=== PATIENT | female | born 1990 | race Caucasian/White ===

== ENCOUNTER 2021-05-28 17:51 | Emergency (ER) | payer MEDICAID ==
[~2021-05-28] VITALS: Ht 165.1 cm; Wt 100.0 kg
--- NOTE | 2021-05-28 18:15 | NUR ---
late entry::PT BROUGHT TO ROOM BY EMS
--- NOTE | 2021-05-28 18:23 | NUR ---
L&D AT BEDSIDE FOR FHT
--- NOTE | 2021-05-28 19:00 | NUR ---
FIRST ENCOUNTER WITH PATIENT. PATIENT SITTING IN BEDSIDE COMMODE. LAB AT BEDSIDE. PATIENT SPEAKING ABOUT HOW HOSPITALS DONT HELP PEOPLE AND SHE JUST WANTS TO GO HOME. WILL CONTINUE TO MONITOR.
--- NOTE | 2021-05-28 19:20 | NUR ---
PATIENTS MOM CALLED ED. ATTEMPTED TO SPEAK WITH HER BUT UNABLE TO HEAR HER ON THE OTHER LINE. ADVISED HER TO CALL BACK DUE TO THE INABILITY TO HEAR HER ON THE PHONE.
--- NOTE | 2021-05-28 19:23 | NUR ---
PATIENT REFUSING BLOOD WORK.
--- NOTE | 2021-05-28 19:29 | NUR ---
BELONGING INVENTORIED (SALES AND MARKETING ASSISTANT FOUND 9 UNLABELED PILLS WHICH I TOOK TO PHARMACY) ALL OTHER BELONGING LOCKED IN ER BELONGINGS LOCKER PATIENT REFUSING US/LAB/ULTRASOUND- ERP/CUPOLA PATCHER HELPER MAKE AWARE
--- NOTE | 2021-05-28 19:33 | NUR ---
ATTEMPTED TO COLLECT URINE SAMPLE. PATIENT RAN TO BEDSIDE COMMODE AND PREVENTED THIS RN FROM COLLECTING URINE SAMPLE.
--- NOTE | 2021-05-28 19:40 | NUR ---
MOM UPDATED THAT PATIENT IS HERE AND IS REFUSING ALL TESTING AT THIS TIME. UPDATED MOM THAT PATIENT WANTS TO JUST GO HOME AND WANTS HER MOM TO PICK HER UP. PATIENTS MOM REPORTS SHE CANT DO THAT AT THIS TIME BECAUSE SHE DOESNT HAVE A CAR. MOM STATES "SHE DOES THIS ALL THE TIME."
--- NOTE | 2021-05-28 20:17 | NUR ---
PATIENT CONTINUES TO REFUSE BLOODWORK. PATIENT PROVIDED URINE SAMPLE IN COMMODE BUT I AM UNABLE TO SEND IT DUE TO TOLIET PAPER BEING IN THE HAT. PATIENT AWARE OF NEED FOR URINE SAMPLE AND THIS RN PROVIDED PROPER INSTRUCTIONS ON HOW TO DO SO. PATIENT VERBALIZED UNDERSTANDING.
--- NOTE | 2021-05-28 20:44 | NUR ---
PATIENT BEING PROVIDED WITH TAXI BACK HOME. THIS RN AND MD WATERS HAD EXTENSIVE BEDSIDE CONVERSTATION WITH PATIENT WHO DENIES SI/ HI AND STATES SHE JUST WANTS TO GO HOME SO SHE CAN WORK TOMORROW.
--- NOTE | 2021-05-28 20:55 | NUR ---
PICKED UP PATIENTS UNKNOWN PILLS FROM PHARMACY AND GIVEN BACK TO PATIENT.
--- NOTE | 2021-05-28 21:02 | NUR ---
Patient given discharge instructions and they have confirmed that they understand the instructions. Patient ambulatory with steady gait. NAD, all questions answered appropriately, denies additional needs at this time. No personal belongings left in room after discharge.
== END 2021-05-28 21:03 | disposition home or self-care (01) ==
LOC: ED 20:34
DX: O99.311 Alcohol use complicating pregnancy, first trimester (principal); F10.129 Alcohol abuse with intoxication, unspecified; Y90.9 Presence of alcohol in blood, level not specified; Z3A.01 Less than 8 weeks gestation of pregnancy
CPT/HCPCS: 76801; 99284